=== PATIENT | female | born 1940 | race Caucasian/White ===

== ENCOUNTER 2020-11-07 16:50 | Observation (INO) ==
[2020-11-07 18:17] LABS: Mean Cell Volume 67.2 fl (78-100); Mean Corpuscular Hemoglobin 17.9 pg (27-31); Mean Corpuscular Hgb Conc 26.6 g/dl (32-36); Mean Platelet Volume 9.5 fl (8-12.5); Neutrophil # 5.7 K/mm3 (1.3-6.0); Neutrophil % 70.5 % (42-75.0); Platelet Count 289 K/mm3 (150-450); Red Blood Count 2.74 M/mm3 (4.2-5.4); White Blood Count 8.1 K/mm3 (4.0-10.5)
[2020-11-07 18:20] LABS: Hemoglobin 4.9 gm/dL (12.5-16.0)
[2020-11-07 18:21] LABS: Hematocrit 18.4 % (37.0-47.0)
[2020-11-07 18:33] LABS: Albumin * 3.3 gm/dl (3.4-5.0); Anion Gap 13.4 mmol/L (6.8-13.8); BUN/Creatinine Ratio 19.1 (9.0-21.6); Bilirubin, Total 0.3 mg/dL (0.0-1.1); Calcium * 8.8 mg/dL (7.9-10.9); Carbon Dioxide 24.5 mmol/L (24-32.6); Potassium 3.9 mmol/L (3.4-4.6)
--- NOTE | 2020-11-07 18:45 | ERNOTE ---
Medical Problem HPI - Narrative Date of Service: 11/07/20 - General Chief Complaint: General Assessment Time Seen by Provider: 11/07/20 17:51 Source: patient - Immun/Allergies/Home Medications Immunizations: IMMUNIZATION HX Immunizations Up to Date Yes History of Influenza Vaccine Yes Hx Pneumococcal Vaccination No Allergies/Adverse Reactions: Allergies No Known Allergies Allergy (Verified 11/07/20 17:06) Home Medications: HOME MEDICATIONS calcium carbonate 500 mg (1,250 mg)-vitamin D3 400 unit tablet 1 tab PO DAILY tab 09/27/18 [Last Taken Unknown] coenzyme Q10 300 mg capsule 300 mg PO DAILY 09/27/18 [Last Taken Unknown] Ascorbic Acid [Vitamin C] 500 mg PO DAILY 03/25/19 [Last Taken Unknown] Cholecalciferol (Vitamin D3) [Vitamin D3] 1,000 units PO DAILY 03/25/19 [Last Taken Unknown] Cyanocobalamin [Vitamin B-12] 1,000 mcg PO DAILY 03/25/19 [Last Taken Unknown] Multivitamin [Multivitamins] 1 ea PO DAILY 03/25/19 [Last Taken Unknown] Enoxaparin Sodium [Lovenox] 60 mg SQ BID #10 ml 09/22/19 [Last Taken Unknown] mesalamine 1.2 gram tablet,delayed release 4.8 g PO DAILY 10/03/19 [Last Taken Unknown] warfarin 5 mg tablet See Rx Instructions .ROUTE .COMPLEX #30 unknown measurement unit code: not specified 10/04/20 [Last Taken Unknown] simvastatin 20 mg tablet 20 mg PO DAILY #90 tab 10/24/20 [Last Taken Unknown] - History of Present History Narrative: 80-year-old female presenting at the request of her primary care provider for a low hemoglobin. Patient is currently on warfarin and has a past medical history of ulcerative colitis. 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 She has been seen by her primary care provider to make sure her warfarin was in range. Recently she was noted to have a warfarin/INR level of 4. She also reports a recent flare of her ulcerative colitis at the tail end of October. At this time she reported having multiple dark stools. Since that time she states that the dark stools have improved/resolved. Today she felt short of breath with exertion and reached out to her primary care provider. She denies any chest pain or other symptoms. Timing: intermittent Severity: mild Review of Systems - Narrative Narrative: REVIEW OF SYSTEMS GENERAL: Negative for any nausea, vomiting, fevers, chills, or weight loss. HEENT: Negative for sore throats, congestion, changes in vision, changes in hearing, CARDIAC: Negative for any chest pain, dyspnea, or palpitations. PULMONARY: Negative for any cough, or wheezing. Positive for shortness of breath GASTROINTESTINAL: Negative for any abdominal pain, nausea, vomiting, constipation, or diarrhea. GENITOURINARY: Negative for any dysuria, changes in urine output. INTEGUMENTARY: Negative for any rashes. NEUROLOGIC: Negative for changes in vision or headaches. RHEUMATOLOGIC: Negative for any joint pains, Medical History (Last Reviewed 11/07/20 @ 20:41 by Tommy Rodriguez MD) History of ulcerative colitis (Resolved) Onset Date: Unknown Hyperlipidemia (Chronic) Onset Date: Unknown Hx of deep venous thrombosis Surgical History: Surgical History (Last Reviewed 11/07/20 @ 20:41 by Tommy Rodriguez MD) History of colonoscopy Onset Date: ~2015 Dr Cochran 20cm benign inflammatory bowel disease 2016 WNL History of dilation and curettage Onset Date: Unknown History of esophagogastroduodenoscopy Onset Date: ~2009 History of tubal ligation Onset Date: ~1969 Family History: Family History (Last Reviewed 11/07/20 @ 20:41 by Tommy Rodriguez MD) Father Cancer Disease of prostate Mother Heart disease Hypothyroidism Diverticulitis Social History: (Last Reviewed 11/07/20 @ 20:41 by Tommy Rodriguez MD) Social History: Marital status: lives independently: Yes number of children: 2 Service: No Tobacco: Smoking Status: Former smoker Alcohol: alcohol intake: never Substance Use: substance use type: does not use Dietary Habits: caffeine: Yes Physical Exam - Physical Exam General Appearance: Present: wd/wn, alert, no apparent distress Head Exam: Present: normal inspection Eye Exam: Conjunctivae pale: bilateral, Other: bilateral Neck: Present: normal inspection Respiratory: Present: no respiratory distress, normal breath sounds Cardiovascular/Chest: Present: regular rate, rhythm, normal peripheral pulses Gastrointestinal/Abdominal: Present: normal bowel sounds Extremity Exam: Present: normal inspection Neurological Exam: Present: alert, oriented Skin Exam: Present: pallor Progress - Results and Orders Patient's Lab Results:: I have reviewed the patient's lab results. - Vital Signs Patient's Vital Signs:: I have reviewed the patient's vital signs. Vital Signs: Vital Signs 11/07/20 16:52 11/07/20 17:14 11/07/20 17:48 Temperature 36.2 C Pulse Rate 78 81 86 Respiratory Rate 16 16 15 Blood Pressure 140/55 140/55 144/66 O2 Sat by Pulse Oximetry 100 99 100 - Progress/Reassessment Chief Complaint: General Assessment Progress Note-Subjective: 11/07/20 20:42 Patient noted to have hemoglobin of 4.9, this most likely due to her ulcerative colitis in the setting of anticoagulation. Patient was consented for 3 units of RBCs. Patient will be observed during transfusion by inpatient team. - Transfer of Care Expected Disposition: Admit Departure Clinical Impression: Anemia Qualifiers: Anemia type: iron deficiency Iron deficiency anemia type: chronic blood loss Qualified Code(s): D50.0 - Iron deficiency anemia secondary to blood loss (chronic) - Departure Disposition: Still a patient Condition: Stable
[2020-11-07 18:56] LABS: Prothrombin Time (Patient) 18.7 Seconds (9.1-10.7)
[2020-11-07 18:57] LABS: INR 1.94 INR (0.92-1.08)
[2020-11-08 09:51] LABS: Hematocrit 34.6 % (37.0-47.0); Hemoglobin 10.3 gm/dL (12.5-16.0); Mean Cell Volume 75.9 fl (78-100); Mean Corpuscular Hemoglobin 22.6 pg (27-31); Mean Corpuscular Hgb Conc 29.8 g/dl (32-36); Mean Platelet Volume 9.5 fl (8-12.5); Neutrophil # 5.7 K/mm3 (1.3-6.0); Neutrophil % 77.6 % (42-75.0); Platelet Count 254 K/mm3 (150-450); Red Blood Count 4.56 M/mm3 (4.2-5.4); Red Cell Distribution Width 22.2 % (11.5-14.0); White Blood Count 7.4 K/mm3 (4.0-10.5)
[2020-11-08 10:04] LABS: BUN/Creatinine Ratio 15.9 (9.0-21.6)
[2020-11-08 10:05] LABS: Albumin * 3.3 gm/dl (3.4-5.0); Bilirubin, Total 0.5 mg/dL (0.0-1.1); Ca. Corrected For Albumin 8.6 mg/dL (8.4-10.2); Calcium * 8.4 mg/dL (7.9-10.9); Carbon Dioxide 25.1 mmol/L (24-32.6); Potassium 4.1 mmol/L (3.4-4.6); Total Protein 7.3 gm/dL (6.2-8.2)
--- NOTE | 2020-11-08 10:05 | HPDIS ---
Chief Complaint - Chief Complaint Date of Service: 11/08/20 Time of Service: 09:08 Chief Complaint: Shortness of breath History of Present Illness: 80-year-old female with a past medical history of ulcerative colitis, DVT, hyperlipidemia presents from her PCPs office with complaints of shortness of breath. She was found to have anemia with a hemoglobin of 4.7 and was sent to the emergency room. She denied blood in her stool or urine. She states she occasionally gets black stools that is secondary to her ulcerative colitis claims. In the ER her hemoglobin was 4.9, hematocrit was 18.4. She was admitted for blood transfusion. Her vitals were stable. Medical History (Last Reviewed 11/07/20 @ 21:32 by Lisseth Pierson RN) History of ulcerative colitis (Resolved) Onset Date: Unknown Hyperlipidemia (Chronic) Onset Date: Unknown Hx of deep venous thrombosis Surgical History: Surgical History (Last Updated 11/07/20 @ 21:33 by Lisseth Pierson RN) History of colonoscopy Onset Date: ~2015 Dr Cochran 20cm benign inflammatory bowel disease 2016 WNL History of esophagogastroduodenoscopy Onset Date: ~2009 History of tubal ligation Onset Date: ~1969 Family History: Family History (Last Reviewed 11/07/20 @ 21:34 by Lisseht Pierson RN) Father Cancer Disease of prostate Mother Heart disease Hypothyroidism Diverticulitis Social History: (Last Reviewed 11/07/20 @ 21:34 by Lisseth Pierson RN) Social History: Marital status: lives independently: Yes number of children: 2 Service: No Tobacco: Smoking Status: Former smoker Alcohol: alcohol intake: never Substance Use: substance use type: does not use Dietary Habits: caffeine: Yes Review Of Systems (GEN) - Review of Systems Generalized/Overall Review: Absent: Fever Respiratory: Present: Shortness of Breath - With exertion Cardiac: Absent: Chest Pain Abdominal: Absent: Abdominal Pain, Melena, Bright blood from rectum Misc: All systems neg except as marked Immunizations: IMMUNIZATION HX Immunizations Up to Date Yes History of Influenza Vaccine Yes Hx Pneumococcal Vaccination No Allergies/Adverse Reactions: Allergies Allergy/AdvReac Type Severity Reaction Status Date / Time No Known Allergies Allergy Verified 11/07/20 17:06 Home Medications: HOME MEDICATIONS calcium carbonate 500 mg (1,250 mg)-vitamin D3 400 unit tablet 1 tab PO DAILY tab 09/27/18 [Last Taken Unknown] coenzyme Q10 300 mg capsule 300 mg PO DAILY 09/27/18 [Last Taken Unknown] Ascorbic Acid [Vitamin C] 500 mg PO DAILY 03/25/19 [Last Taken Unknown] Cholecalciferol (Vitamin D3) [Vitamin D3] 1,000 units PO DAILY 03/25/19 [Last Taken Unknown] Cyanocobalamin [Vitamin B-12] 1,000 mcg PO DAILY 03/25/19 [Last Taken Unknown] Multivitamin [Multivitamins] 1 ea PO DAILY 03/25/19 [Last Taken Unknown] Enoxaparin Sodium [Lovenox] 60 mg SQ BID #10 ml 09/22/19 [Last Taken Unknown] mesalamine 1.2 gram tablet,delayed release 4.8 g PO DAILY 10/03/19 [Last Taken Unknown] warfarin 5 mg tablet See Rx Instructions .ROUTE .COMPLEX #30 unknown measurement unit code: not specified 10/04/20 [Last Taken Unknown] simvastatin 20 mg tablet 20 mg PO DAILY #90 tab 10/24/20 [Last Taken Unknown] Exam - Exam Vital Signs: Vital Signs - Last Taken Temp 37.0 C 11/08/20 07:55 Pulse 68 11/08/20 07:55 Resp 14 11/08/20 07:55 BP 144/79 11/08/20 07:55 Pulse Ox 97 11/08/20 07:55 Constitutional: Present: Alert, Cooperative, Well developed, Well nourished, No distress, Elderly ENT Exam: Present: hearing grossly normal, moist mucous membranes Eye Exam: bilateral eye: EOMI Neck: Present: non-tender, supple. Absent: lymphadenopathy (R), lymphadenopathy (L) Back Exam: Present: normal inspection, no CVA tenderness, no vertebral tenderness Respiratory: Present: lungs clear, no respiratory distress, no accessory muscle use, decreased breath sounds, No wheezing. Absent: crackles, rhonchi Cardiovascular/Chest: Present: normal peripheral pulses, regular rate, rhythm, no edema, no murmur Peripheral Pulses: dorsalis-pedis (R): 1+, dorsalis-pedis (L): 1+ Abdomen: Present: Normal bowel sounds, soft, nontender Extremity: Present: no pedal edema Skin Exam: Present: normal color, warm/dry, no cyanosis Neurologic: Present: alert, normal mood/affect Appearance: Present: appropriate appearance, appropriate insight Eye contact: Present: cooperative, good eye contact Thoughts: Present: normal thought pattern, normal mood /affect Diagnostic Studies: Abnormal Lab Results 11/07/20 11/07/20 11/07/20 Range/Units 18:05 18:05 18:05 RBC 2.74 L (4.2-5.4) M/mm3 Hgb 4.9 L* (12.5-16.0) gm/dL Hct 18.4 L* (37.0-47.0) % MCV 67.2 L (78-100) fl MCH 17.9 L (27-31) pg MCHC 26.6 L (32-36) g/dl RDW 18.0 H (11.5-14.0) % Lymphocytes % 19.9 L (20-51) % PT (9.1-10.7) Seconds INR (Anticoag Therapy) (0.92-1.08) INR Random Glucose 120 H (70-110) mg/dL ALT 15 L (19-67) U/L Albumin 3.3 L (3.4-5.0) gm/dl Crossmatch See Detail 11/07/20 Range/Units 18:05 RBC (4.2-5.4) M/mm3 Hgb (12.5-16.0) gm/dL Hct (37.0-47.0) % MCV (78-100) fl MCH (27-31) pg MCHC (32-36) g/dl RDW (11.5-14.0) % Lymphocytes % (20-51) % PT 18.7 H (9.1-10.7) Seconds INR (Anticoag Therapy) 1.94 H (0.92-1.08) INR Random Glucose (70-110) mg/dL ALT (19-67) U/L Albumin (3.4-5.0) gm/dl Crossmatch Laboratory Results WBC 8.1 K/mm3 (4.0-10.5) 11/07/20 18:05 RBC 2.74 M/mm3 (4.2-5.4) L 11/07/20 18:05 Hgb 4.9 gm/dL (12.5-16.0) L* 11/07/20 18:05 Hct 18.4 % (37.0-47.0) L* 11/07/20 18:05 MCV 67.2 fl (78-100) L 11/07/20 18:05 MCH 17.9 pg (27-31) L 11/07/20 18:05 MCHC 26.6 g/dl (32-36) L 11/07/20 18:05 RDW 18.0 % (11.5-14.0) H 11/07/20 18:05 Plt Count 289 K/mm3 (150-450) 11/07/20 18:05 MPV 9.5 fl (8-12.5) 11/07/20 18:05 Immature Gran % (Auto) 0.20 % (0.001-0.429) 11/07/20 18:05 Immature Gran # (Auto) 0.02 K/mm3 (0.000-0.0310) 11/07/20 18:05 Neutrophils % 70.5 % (42-75.0) 11/07/20 18:05 Lymphocytes % 19.9 % (20-51) L 11/07/20 18:05 Monocytes % 8.1 % (0.0-9) 11/07/20 18:05 Eosinophils % 0.9 % (0.0-3.0) 11/07/20 18:05 Basophils % 0.4 % (0.0-1.0) 11/07/20 18:05 Nucleated RBC % 0.0 k/mm3 (0-1) 11/07/20 18:05 Neutrophils # 5.7 K/mm3 (1.3-6.0) 11/07/20 18:05 Lymphocytes # 1.62 k/mm3 (1.5-3.5) 11/07/20 18:05 Monocytes # 0.7 k/mm3 (0.0-1.0) 11/07/20 18:05 Eosinophils # 0.1 k/mm3 (0.0-0.7) 11/07/20 18:05 Absolute Basophils 0.0 k/mm3 (0.0-0.1) 11/07/20 18:05 PT 18.7 Seconds (9.1-10.7) H 11/07/20 18:05 INR (Anticoag Therapy) 1.94 INR (0.92-1.08) H 11/07/20 18:05 Sodium 138 mmol/L (132-142) 11/07/20 18:05 Plasma Sodium 138 mmol/L (130-142) 11/07/20 18:05 Potassium 3.9 mmol/L (3.4-4.6) 11/07/20 18:05 Chloride 104 mmol/L (97-106) 11/07/20 18:05 Carbon Dioxide 24.5 mmol/L (24-32.6) 11/07/20 18:05 Anion Gap 13.4 mmol/L (6.8-13.8) 11/07/20 18:05 BUN 17 mg/dL (3-23) 11/07/20 18:05 Creatinine 0.89 mg/dL (0.4-1.4) 11/07/20 18:05 Est GFR (Non-Af Amer) 65 mL/min (60-130) 11/07/20 18:05 BUN/Creatinine Ratio 19.1 (9.0-21.6) 11/07/20 18:05 Random Glucose 120 mg/dL (70-110) H 11/07/20 18:05 Calcium 8.8 mg/dL (7.9-10.9) 11/07/20 18:05 Calcium Adj for Albumin 9.0 mg/dL (8.4-10.2) 11/07/20 18:05 Total Bilirubin 0.3 mg/dL (0.0-1.1) 11/07/20 18:05 AST 14 U/L (0-48) 11/07/20 18:05 ALT 15 U/L (19-67) L 11/07/20 18:05 Alkaline Phosphatase 73 U/L (50-170) 11/07/20 18:05 Total Protein 7.0 gm/dL (6.2-8.2) 11/07/20 18:05 Albumin 3.3 gm/dl (3.4-5.0) L 11/07/20 18:05 SARS-CoV-2 (PCR) Not detected (NotDetected) 11/07/20 19:10 Blood Type A Positive 11/07/20 18:05 Antibody Screen Negative 11/07/20 18:05 Crossmatch See Detail 11/07/20 18:05 Assessment/Plan - Narrative Narrative: 80-year-old female with a past medical history of ulcerative colitis, DVT, hyperlipidemia presents from her PCPs office with complaints of shortness of breath. She was found to have anemia with a hemoglobin of 4.7 and was sent to the emergency room. In the ER her hemoglobin was 4.9, hematocrit was 18.4. She was admitted for blood transfusion. Her vitals were stable. Plan #1 transfuse 3 units of blood #2 repeat CBC and CMP #3 resume home medications for comorbidities. - Assessment/Plan (1) Symptomatic anemia Problem: Acute (2) History of ulcerative colitis Problem: Chronic (3) Hyperlipidemia Problem: Chronic Qualifiers: Hyperlipidemia type: unspecified Qualified Code(s): E78.5 - Hyperlipidemia, unspecified (4) Shortness of breath Problem: Acute (5) Hiatal hernia Problem: Chronic (1) Symptomatic anemia Problem: Acute (2) History of ulcerative colitis Problem: Resolved (3) Hyperlipidemia Problem: Chronic (4) Shortness of breath Problem: Acute (5) Hiatal hernia Problem: Resolved Hospital Course: 80-year-old female with a past medical history of ulcerative colitis, DVT, hyperlipidemia presents from her PCPs office with complaints of shortness of breath. She was found to have anemia with a hemoglobin of 4.7 and was sent to the emergency room. In the ER her hemoglobin was 4.9, hematocrit was 18.4. She was admitted for blood transfusion. Her vitals were stable. Repeat hemoglobin this morning is 10.3, hematocrit is 34.6. She is feeling well. Denies shortness of breath or chest pain or abdominal pain. She is tolerating her diet. She is stable to be discharged home today. She will follow-up with her PCP within 1 to 2 weeks. Procedures Performed: none Results and Findings: Lab Pending Results 11/07/20 18:05: WBC 8.1, RBC 2.74 L, Hgb 4.9 L*, Hct 18.4 L*, MCV 67.2 L, MCH 17.9 L, MCHC 26.6 L, RDW 18.0 H, Plt Count 289, MPV 9.5, Immature Gran % (Auto) 0.20, Immature Gran # (Auto) 0.02, Neutrophils % 70.5, Lymphocytes % 19.9 L, Monocytes % 8.1, Eosinophils % 0.9, Basophils % 0.4, Nucleated RBC % 0.0, Neutrophils # 5.7, Lymphocytes # 1.62, Monocytes # 0.7, Eosinophils # 0.1, Absolute Basophils 0.0 11/07/20 18:05: Sodium 138, Plasma Sodium 138, Potassium 3.9, Chloride 104, Carbon Dioxide 24.5, Anion Gap 13.4, BUN 17, Creatinine 0.89, Est GFR (Non-Af Amer) 65, BUN/Creatinine Ratio 19.1, Random Glucose 120 H, Calcium 8.8, Calcium Adj for Albumin 9.0, Total Bilirubin 0.3, AST 14, ALT 15 L, Alkaline Phosphatase 73, Total Protein 7.0, Albumin 3.3 L 11/07/20 18:05: Blood Type A Positive, Antibody Screen Negative, Crossmatch See Detail 11/07/20 18:05: PT 18.7 H, INR (Anticoag Therapy) 1.94 H 11/07/20 19:10: SARS-CoV-2 (PCR) Not detected Discharge Location: Home Disposition: Home self-care Condition: Stable Discharge Activity: Activity as tolerated Discharge Diet: General/regular food Referrals: Tracy Taylor MD [Primary Care Provider] - Complete Home Medications List: Complete Home Medication List: calcium carbonate 500 mg (1,250 mg)-vitamin D3 400 unit tablet 1 tab PO DAILY tab 09/27/18 coenzyme Q10 300 mg capsule 300 mg PO DAILY 09/27/18 Ascorbic Acid [Vitamin C] 500 mg PO DAILY 03/25/19 Cholecalciferol (Vitamin D3) [Vitamin D3] 1,000 units PO DAILY 03/25/19 Cyanocobalamin [Vitamin B-12] 1,000 mcg PO DAILY 03/25/19 Multivitamin [Multivitamins] 1 ea PO DAILY 03/25/19 Enoxaparin Sodium [Lovenox] 60 mg SQ BID #10 ml 09/22/19 mesalamine 1.2 gram tablet,delayed release 4.8 g PO DAILY 10/03/19 warfarin 5 mg tablet See Rx Instructions .ROUTE .COMPLEX #30 unknown measurement unit code: not specified 10/04/20 simvastatin 20 mg tablet 20 mg PO DAILY #90 tab 10/24/20
[2020-11-08 11:34] VITALS: BP 151/78
== END 2020-11-08 12:21 | disposition home or self-care (01) ==
LOC: ER 16:50 → MS 16:50
PROVIDERS: ADMIT Internal Medicine; ATTEND Internal Medicine